=== PATIENT | female | born 1980 | race Caucasian/White ===

== ENCOUNTER → 2020-05-05 | Outpatient (CLI) | payer MEDICAID ==
[2020-05-05 17:34] LABS: HEMOGLOBIN 11.9 G/DL (11.5-16.0); MEAN PLATELET VOLUME 9.4 FL (7.4-10.4); WHITE BLOOD COUNT 8.5 10^3/uL (4.3-11.0)
== END ==
LOC: LAB FS 04-21 09:43
PROVIDERS: ATTEND Family Medicine
DX: N92.0 Excessive and frequent menstruation with regular cycle (principal)
CPT/HCPCS: 36415; 84443; 85027

== ENCOUNTER 2020-09-24 11:25 | Emergency (ER) | payer MEDICAID ==
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
--- NOTE | 2020-09-24 12:43 | Diagnostic Imaging Report ---
INDICATION: Fall. 3 views were obtained. FINDINGS: The osseous alignment is normal. There is no acute fracture or dislocation. The soft tissues are unremarkable. IMPRESSION: No acute abnormality. Dictated by: Dictated on workstation # [id number]
[2020-09-24] MEDS ORDERED: IBUP-1780 PO (12:48)
[2020-09-24] MEDS ORDERED: ACHD5005 PO (12:48)
[2020-09-24 13:53] VITALS: BP 114/72
--- NOTE | 2020-09-24 13:53 | Diagnostic Imaging Report ---
INDICATION: Fall. 3 views were obtained FINDINGS: The alignment is normal. The plafonds and talar dome are intact. Ankle mortise is symmetric. No fracture or dislocation. IMPRESSION: No acute fracture or dislocation. Dictated by: Dictated on workstation # [id number]
--- NOTE | 2020-09-24 14:21 | Diagnostic Imaging Report ---
EXAMINATION: Right elbow 3 or more views HISTORY: Fall COMPARISON: None available. FINDINGS: There is a fracture through the olecranon with 7 mm of displacement extending into the joint space. There is an elbow joint effusion. No other fracture is seen. IMPRESSION: 1. Displaced olecranon fracture with elbow joint effusion. Dictated by: Dictated on workstation # [id number]
== END 2020-09-24 13:53 | disposition home or self-care (01) ==
LOC: EDUNIT# 11:25 → ER FS 11:28
DX: S52.021A Displaced fracture of olecranon process without intraarticular extension of right ulna, initial encounter for closed fracture (principal); S42.401A Unspecified fracture of lower end of right humerus, initial encounter for closed fracture; S93.401A Sprain of unspecified ligament of right ankle, initial encounter; S80.01XA Contusion of right knee, initial encounter; S80.11XA Contusion of right lower leg, initial encounter; V29.9XXA Motorcycle rider (driver) (passenger) injured in unspecified traffic accident, initial encounter
CPT/HCPCS: 29105; 73080; 73562; 73610

== ENCOUNTER → 2020-10-13 | Outpatient (CLI) | payer MEDICAID ==
[~2020-10-13] MED LIST: ACHD5005 PO; IBUP-1780 PO
--- NOTE | 2020-10-13 09:50 | Diagnostic Imaging Report ---
Indication: Ulnar fracture AP, oblique and lateral views of right elbow are obtained with comparison made to study of 09/24/2020. Olecranon plate and multiple screws transfix the previously identified distracted fracture fragment. The alignment is now anatomic. No new fracture or malalignment is identified and there is no evidence of orthopedic hardware complication. IMPRESSION: Open reduction and internal fixation of proximal ulnar fracture without evidence of complication. Dictated by: Dictated on workstation # [id number]
== END ==
LOC: RAD FS 08:43
PROVIDERS: ATTEND Nurse Practitioner
DX: S52.031A Displaced fracture of olecranon process with intraarticular extension of right ulna, initial encounter for closed fracture (principal)
CPT/HCPCS: 73080

== ENCOUNTER → 2020-10-27 | Outpatient (CLI) | payer MEDICAID ==
--- NOTE | 2020-10-27 10:14 | Diagnostic Imaging Report ---
INDICATION: Right elbow fracture, follow-up. TIME OF EXAM: 9:02 AM Correlation is made with prior radiograph from 10/13/2020. FINDINGS: Plate and numerous screws transfixes the proximal ulna. Hardware appears intact without fracture or loosening. No residual fracture line is seen. The proximal radius is intact. Distal humerus is intact. No joint effusion is seen. IMPRESSION: Satisfactory postop right elbow. Dictated by: Dictated on workstation # [id number]
== END ==
LOC: RAD FS 08:48
PROVIDERS: ATTEND Nurse Practitioner
DX: S52.031D Displaced fracture of olecranon process with intraarticular extension of right ulna, subsequent encounter for closed fracture with routine healing (principal)
CPT/HCPCS: 73080

== ENCOUNTER → 2020-11-17 | Outpatient (CLI) | payer MEDICAID ==
--- NOTE | 2020-11-17 09:27 | Diagnostic Imaging Report ---
Indication: Elbow fracture, follow-up. Time of exam 9:14 AM Correlation is made with prior radiographs from 10/27/2020. There is a plate and numerous screws transfixing the proximal ulna. Hardware is intact without fracture or loosening. Fracture involving the olecranon is not well visualized on today's study and likely healed. There is no joint effusion. IMPRESSION: ORIF involving olecranon fracture. No residual fracture line is identified. Dictated by: Dictated on workstation # [id number]
== END ==
LOC: RAD FS 09:03
PROVIDERS: ATTEND Nurse Practitioner
DX: S52.031D Displaced fracture of olecranon process with intraarticular extension of right ulna, subsequent encounter for closed fracture with routine healing (principal); X58.XXXD Exposure to other specified factors, subsequent encounter
CPT/HCPCS: 73080

== ENCOUNTER → 2021-12-07 | Outpatient (CLI) | payer MEDICAID ==
[2021-12-07 12:18] LABS: BASOPHILS # (AUTO) 0.1 10^3/uL (0.0-0.1); BASOPHILS % (AUTO) 0 % (0-10); EOSINOPHILS # (AUTO) 0.2 10^3/uL (0.0-0.3); EOSINOPHILS % (AUTO) 1 % (0-10); HEMATOCRIT 37 % (35-52); HEMOGLOBIN 12.3 g/dL (11.5-16.0); LYMPHOCYTES # (AUTO) 1.8 10^3/uL (1.0-4.0); LYMPHOCYTES % (AUTO) 15 % (12-44); MEAN CORPUSCULAR HEMOGLOBIN 32 pg (25-34); MEAN CORPUSCULAR HGB CONC 34 g/dL (32-36); MEAN CORPUSCULAR VOLUME 94 fL (80-99); MEAN PLATELET VOLUME 9.3 fL (9.0-12.2); MONOCYTES # (AUTO) 0.7 10^3/uL (0.0-1.0); MONOCYTES % (AUTO) 6 % (0-12); NEUTROPHILS % (AUTO) 77 % (42-75); PLATELET COUNT 269 10^3/uL (130-400); WHITE BLOOD COUNT 11.7 10^3/uL (4.3-11.0)
[2021-12-07 12:47] LABS: CHLORIDE 103 MMOL/L (98-107); POTASSIUM 3.7 MMOL/L (3.6-5.0); SODIUM 139 MMOL/L (135-145)
[2021-12-07 12:48] LABS: ACETAMINOPHEN < 10 UG/ML (10-30); ALANINE AMINOTRANSFERASE 12 U/L (0-55); ALBUMIN 4.2 GM/DL (3.2-4.5); ALKALINE PHOSPHATASE 67 U/L (40-136); BILIRUBIN,TOTAL 0.4 MG/DL (0.1-1.0); BUN/CREATININE RATIO 16; CALCIUM 8.7 MG/DL (8.5-10.1); CARBON DIOXIDE 27 MMOL/L (21-32); CREATININE SERUM 0.63 MG/DL (0.60-1.30); GFR ESTIMATED 113; GLUCOSE 99 MG/DL (70-105); SALICYLATE < 0.3 MG/DL (5.0-20.0); TOTAL PROTEIN 7.8 GM/DL (6.4-8.2)
== END ==
LOC: LAB FS 12:05
PROVIDERS: ATTEND Family Medicine
DX: F22 Delusional disorders (principal)
CPT/HCPCS: 36415; 80053; 80329; 85025